=== PATIENT | male | born 1965 | race Caucasian/White ===

== ENCOUNTER → 2016-08-19 | Outpatient (CLI) | payer BC ==
[~2016-08-19] MED LIST: ASPIRIN 325MG325 MG NG; COREG 12.5MG12.5 MG PO; LISINOPRIL10 MG PO; LISINOPRIL20 MG PO; MELOXICAM7.5 MG PO; PROPRANOLOL HCL10 MG PO; TYLENOL 325MG325 MG PO; ZYRTEC10 MG PO
== END ==
LOC: CT 09:51
DX: J98.59 Other diseases of mediastinum, not elsewhere classified (principal); J45.30 Mild persistent asthma, uncomplicated; J98.4 Other disorders of lung; Z98.890 Other specified postprocedural states
CPT/HCPCS: 36415; 71260; 82785; J7050; Q9962

== ENCOUNTER → 2016-08-26 | Outpatient (CLI) | payer BC | LOC: LAB 10:22 | DX: E05.00 Thyrotoxicosis with diffuse goiter without thyrotoxic crisis or storm (principal); E05.90 Thyrotoxicosis, unspecified without thyrotoxic crisis or storm | CPT/HCPCS: 36415; 84439; 84443 ==

== ENCOUNTER → 2020-04-13 | Outpatient (CLI) | payer BC, OTHER ==
[2020-04-13 09:20] LABS: HEMOGLOBIN 16.7 gm/dl (14.0-17.5); RED BLOOD COUNT 5.34 M/UL (4.20-5.50); WHITE BLOOD COUNT 5.8 K/UL (4.5-11.0)
[2020-04-13 09:42] LABS: BUN/CREATININE RATIO 17 (0-10)
== END ==
LOC: RAD 08:35
PROVIDERS: Family Medicine
DX: J98.59 Other diseases of mediastinum, not elsewhere classified (principal); E03.9 Hypothyroidism, unspecified; I10 Essential (primary) hypertension; E78.5 Hyperlipidemia, unspecified; K21.9 Gastro-esophageal reflux disease without esophagitis; Z12.5 Encounter for screening for malignant neoplasm of prostate; Z79.899 Other long term (current) drug therapy
CPT/HCPCS: 36415; 71046; 80053; 80061; 82607; 83735; 84153; 84439; 84443; 84550; 85027

== ENCOUNTER → 2020-05-11 | Outpatient (CLI) | payer BC, OTHER | LOC: KOH-I 10:53 | DX: J98.59 Other diseases of mediastinum, not elsewhere classified (principal); R91.8 Other nonspecific abnormal finding of lung field; K76.0 Fatty (change of) liver, not elsewhere classified; N20.0 Calculus of kidney | CPT/HCPCS: 71250 ==